=== PATIENT | female | born 1970 | race Caucasian/White ===

== ENCOUNTER 2016-04-09 11:44 | Emergency (ER) | payer BC ==
[~2016-04-09] VITALS: Ht 162.6 cm; Wt 113.4 kg
[~2016-04-09 11:44] MED LIST: ADVAIR 100/501 DISK IH; DEXILANT PO; LEXAPRO10 MG PO; PROVENTIL HFA6.7 GM IH; XANAX0.5 MG PO
[2016-04-09 12:57] LABS: EOSINOPHIL (%) 2.9 % (0-5); EOSINOPHIL COUNT 0.2 K/uL (0-0.3); IMMATURE GRANULOCYTE (%) 0.3 % (0.0-0.7); IMMATURE GRANULOCYTE COUNT 0.2 K/uL; MCH 28.9 PG (29.0-34.0); MCHC 34.8 G/DL (30.0-36.0); MCV 83.2 FL (83-99); MEAN PLAT.VOLUME 9.9 uM^3 (9.5-12.4); MONOCYTE (%) 5.1 % (3-12); MONOCYTE COUNT 0.3 K/uL (0-0.8); NEUTROPHIL (%) 74.5 % (45-76); NEUTROPHIL COUNT 4.6 K/uL (1.8-6.4); PLATELET COUNT 298 K/uL (156-360); RBC DIS.WIDTH-CV 12.8 % (11.8-14.6); RBC DIS.WIDTH-SD 38.1 % (39-53); RED BLOOD COUNT 5.05 M/uL (3.80-5.20); WHITE BLOOD COUNT 6.1 K/uL (4.1-10.2)
[2016-04-09 13:07] LABS: CHLORIDE 103 mEq/L (99-109); POTASSIUM 3.8 mEq/L (3.7-5.4); SODIUM 136 mEq/L (136-147)
[2016-04-09 13:09] LABS: GLUCOSE 104 mg/dL (70-99)
[2016-04-09 13:10] LABS: ANION GAP 7 MEQ/L (2-14)
[2016-04-09 13:13] LABS: GFR ESTIMATE (CALCULATED) > 59 mL/min/
[2016-04-09 13:14] LABS: UREA NITROGEN (BUN) 9 mg/dL (9-23)
[2016-04-09 13:21] LABS: TROP-I INTERPRETATION NEGATIVE; TROPONIN-I < 0.01 ng/mL (0.0-0.30)
[2016-04-09 13:54] VITALS: BP 134/78
== END 2016-04-09 14:04 | disposition home or self-care (01) ==
LOC: EME → EDBD 11:44 → EME 11:44
PROVIDERS: Emergency Medicine
DX: R07.89 Other chest pain (principal); J45.909 Unspecified asthma, uncomplicated; K21.9 Gastro-esophageal reflux disease without esophagitis
CPT/HCPCS: 80048; 84484; 85025; 93005; 99281; 99284